=== PATIENT | male | born 1940 | race Caucasian/White ===

== ENCOUNTER 2017-05-07 07:59 | Emergency (ER) | payer MEDICARE, OTHER ==
[2017-05-07] MEDS ORDERED: Tetan/Diph/Pertus SYR(Tdap)* 0.5 ML SYR(BOOSTRIX) use SYR IM ONE (08:23)
[2017-05-07] MEDS ORDERED: traMADol TAB* 50 MG PO ONE (09:26)
[2017-05-07] MEDS ORDERED: Lidocaine 1% MPF* 2 ML VIAL INJ ONE (09:28)
[2017-05-07] MEDS ORDERED: cefTRIAXone VIAL(*) 1,000 MG VIAL IM ONE (09:30)
--- NOTE | 2017-05-07 09:51 | RAD ---
Indication: Left foot pain. 3 views of left foot are reviewed. There is no evidence of radiopaque foreign body noted. No other bone or joint abnormalities identified. Surgical clips are noted adjacent to the medial malleolus. IMPRESSION: No evidence of radiopaque foreign body is noted in the plantar aspect of the left foot close to the first metatarsal.
[2017-05-07 10:13] VITALS: BP 126/61
--- NOTE | 2017-05-07 10:16 | UC ---
Skin Complaint HPI - HPI Summary HPI Summary: 76 yo M with redness and pain of his left foot after stepping on a metal FB last pm. PW was through his boot. No fever. Pt not sure if any FB. couldn't see puncture wound last pm. Last tetanus unknown. states the redness is rapidly progressing. - History of Current Complaint Chief Complaint: UCSkin Time Seen by Provider: 05/07/17 08:22 Stated Complaint: LEFT FOOT PAIN/INJURY Hx Obtained From: Patient, Family/Principal Programmer - Onset/Duration: Sudden Onset, Lasting Hours, Still Present Skin Exposure Onset/Duration: Hours Ago Timing: Constant Onset Severity: Moderate Current Severity: Moderate Pain Intensity: 5 Pain Scale Used: 0-10 Numeric Location: Foot (Left) - plantar surface MTP Character: Swelling, Pain, Redness Aggravating: Touch Alleviating: Nothing Associated Signs & Symptoms: Positive: Rash - redness surrounding PW. Negative : Fever, Red Streaks, Joint Swelling Related History: Other: - PW through his boot - Allergy/Home Medications Allergies/Adverse Reactions: Allergies Allergy/AdvReac Type Severity Reaction Status Date / Time pollen Allergy Congestion Uncoded 05/07/17 08:16 Review of Systems Constitutional: Negative Skin: Rash - redness surrounding PW, approx 10cm Eyes: Negative ENT: Negative Respiratory: Negative Cardiovascular: Negative Gastrointestinal: Negative Genitourinary: Negative Motor: Negative Neurovascular: Negative Musculoskeletal: Negative Neurological: Negative Psychological: Negative All Other Systems Reviewed And Are Negative: Yes PMH/Surg Hx/FS Hx/Imm Hx - Additional Past Medical History Additional PMH: not diabetic Cardiovascular History: Cardiac Disease, Hypertension - Surgical History Surgical History: Yes Surgery Procedure, Year, and Place: Back surgeries x 2, hernia surgery, cardiac , b/l carpal tunnel - Family History Known Family History: Positive: Hypertension - Social History Lives: With Family Alcohol Use: Occasionally Substance Use Type: None Smoking Status (MU): Former Smoker Length of Time of Smoking/Using Tobacco: 30 yrs ago - Immunization History Most Recent Tetanus Shot: Unknown Physical Exam Triage Information Reviewed: Yes Appearance: Well-Nourished, Ill-Appearing, Pain Distress Vital Signs: Initial Vital Signs Temp 98.1 F 05/07/17 08:05 Pulse 57 05/07/17 08:05 Resp 18 05/07/17 08:05 BP 130/57 05/07/17 08:05 Vital Signs Reviewed: Yes Eyes: Positive: Conjunctiva Clear ENT: Positive: Normal ENT inspection, Hearing grossly normal. Negative: Muffled /hoarse voice Neck: Positive: Supple Respiratory: Positive: Lungs clear, Normal breath sounds, No respiratory distress Cardiovascular: Positive: RRR, No Murmur, Pulses Normal, Brisk Capillary Refill Musculoskeletal: Positive: Strength Intact, ROM Intact, Other: - PW plantar surface left 5th MTP with surrounding redness extending to dorsal surface 10cm, no red streak, ROM intact, pain with active ROM and passive ROM Neurological: Positive: Alert Psychological Exam: Normal Skin: Positive: Other - redness as above Course/Dx - Course Course Of Treatment: Pt with evidence of infection after PW through boot to left foot. Pt is not DM. Rapid progression of redness and swelling and pain, but no red streaks. Will not give cipro which is often given for PW through a shoe due to pt's age, and black box warning for tendon rupture. Instead will initiate therapy with ceftriaxone, and follow up with oral cephalexin. Have advised pt to return if any new or worsening symptoms. Have outlined the area with purple marker and advised if redness progresses to seek medical attention immediately. - Differential Diagnoses - Skin Complaint Differential Diagnoses: Cellulitis, Lymphangitis, Other - wound infection - Diagnoses Provider Diagnoses: infected puncture wound Discharge - Discharge Plan Condition: Stable Disposition: HOME Prescriptions: Amoxicillin/Clavulanate TAB* [Augmentin TAB 875*] 875 mg PO BID #20 tab traMADol TAB* [Ultram*] 50 mg PO Q8H PRN #9 tab MDD 3 PRN Reason: Pain Patient Education Materials: Wound Infection (ED), Puncture Wound (ED) Referrals: [place] ROMERO,Fidelina Marshall [Primary Care Provider] - 2 Days Additional Instructions: We gave you a shot of ceftriaxone to begin treating infection from your puncture wound. Start your next dose of Augmentin the oral antibiotic tonight. You were given tramadol 50mg for pain. Your next dose of that can be at 4pm, and then every 6 hrs as needed. You may also take plain tylenol with tramadol for pain. Go to the emergency room if he has increased redness, a red streak, or any new or worsening symptoms.
== END 2017-05-07 10:27 | disposition home or self-care (01) ==
LOC: UCCORT 07:59
DX: S91.332A Puncture wound without foreign body, left foot, initial encounter (principal); L08.9 Local infection of the skin and subcutaneous tissue, unspecified; W26.9XXA Contact with unspecified sharp object(s), initial encounter; Y93.9 Activity, unspecified; Y92.9 Unspecified place or not applicable; Z23 Encounter for immunization; I10 Essential (primary) hypertension; Z87.891 Personal history of nicotine dependence
CPT/HCPCS: 90471; 90715; 96372; 99213; A9270-GY; G0463; J0696